=== PATIENT | female | born 1985 | race Caucasian/White ===

== ENCOUNTER 2017-12-10 | Emergency (ER) | payer OTHER ==
[~2017-12-10] VITALS: Ht 160 cm; Wt 99.8 kg
--- NOTE | 2017-12-10 00:52 | NUR ---
Dr. Aparicio at bedside for MSE.
[2017-12-10] MEDS ORDERED: HYDROCODONE/APAP 5-325MG TABLET PO ONE (01:00)
[2017-12-10] MEDS ORDERED: SULFAMETH/TRIMETH 800/160 MG TABLET PO ONE (01:00)
[2017-12-10] MEDS ORDERED: SULFAMETH/TRIMETH 800/160 MG TABLET ONE (01:02)
[2017-12-10] MEDS ORDERED: HYDROCODONE/APAP 5-325MG TABLET ONE (01:03)
--- NOTE | 2017-12-10 01:05 | NUR ---
Patient discharged to home in stable conditon. Written and verbal after care instructions given. Patient verbalizes understanding of instructions. Patient ambulated out of ER with steady gait, no acute signs of distress, VSS, all belongings taken.
[2017-12-10 01:07] VITALS: BP 112/83
== END 2017-12-10 01:08 | disposition home or self-care (01) ==
LOC: ER 00:06
DX: L03.116 Cellulitis of left lower limb (principal); F17.200 Nicotine dependence, unspecified, uncomplicated
CPT/HCPCS: A4663